=== PATIENT | female | born 1965 ===

== ENCOUNTER 2025-07-23 07:08 | Emergency (ER) | payer MEDICARE ==
[2025-07-23] MEDS: fentaNYL 50 MCG/ML SDV IVPUSH ONE ×2 (07:29→08:10)
[2025-07-23 07:35] LABS: BASOPHILS ABSOLUTE AUTO 0.01 K/uL (0.00-0.20); BASOPHILS PERCENT AUTO 0.2 % (0.0-2.0); EOSINOPHILS ABSOLUTE AUTO 0.04 K/uL (0.00-0.50); EOSINOPHILS PERCENT AUTO 0.6 % (0.0-5.0); IMMATURE GRAN ABSOLUTE AUTO 0.02 10^3/uL (0.00-0.04); IMMATURE GRAN PERCENT AUTO 0.3 % (0.0-0.4); LYMPHOCYTES ABSOLUTE AUTO 1.52 K/uL (0.50-3.50); LYMPHOCYTES PERCENT AUTO 23.3 % (10.0-50.0); MONOCYTES ABSOLUTE AUTO 0.39 K/uL (0.00-1.00); MONOCYTES PERCENT AUTO 6.0 % (2.0-14.0); NEUTROPHILS ABSOLUTE AUTO 4.54 K/uL (1.40-7.00); NEUTROPHILS PERCENT AUTO 69.6 % (45.0-80.0); PLATELET COUNT,PLT 177 K/uL (150-350); RED BLOOD CELL COUNT 3.41 M/uL (3.77-5.09); RED CELL DISTRIBUTION WIDTH 12.2 % (11.2-14.1); WHITE BLOOD CELL COUNT,WBC 6.5 K/uL (4.0-10.2)
[2025-07-23 07:56] LABS: ALANINE AMINOTRANSFERASE,ALT 31 U/L (12-78); ASPARTATE AMNIOTRANSFERASE,AST 29 U/L (15-37); BILIRUBIN TOTAL 0.6 mg/dL (0.2-1.0); BLOOD UREA NITROGEN,BUN 22 mg/dL (7-18); CARBON DIOXIDE,CO2 25.3 mmol/L (21.0-32.0); CHLORIDE,CL 105 mmol/L (98-107); CREATININE 1.53 mg/dL (0.51-1.17); GLUCOSE RANDOM 98 mg/dL (70-99); POTASSIUM,K 4.4 mmol/L (3.5-5.1); PROTEIN TOTAL,TP 6.8 g/dL (6.4-8.2); SODIUM,NA 143 mmol/L (136-145)
[2025-07-23 07:58] LABS: ESTIMATED GFR 39 mL/min (>=60)
[2025-07-23] MEDS ORDERED: Midazolam 1 MG/ML 2 ML SDV IV ONE (08:00)
[2025-07-23] MEDS ORDERED: Naloxone 0.4 MG/ML SDV IVPUSH PRN (08:07)
[2025-07-23] MEDS: Midazolam 1 MG/ML 2 ML SDV IVPUSH ONE (08:10)
[2025-07-23] MEDS: Midazolam Oral Soln 10 MG/5 ML UD Cup PO ONE (08:31)
[2025-07-23] MEDS: Sodium Chloride 0.9% 10 ML Syringe FLUSH PRN (09:07)
[2025-07-23] MEDS: Ondansetron 4 MG/2 ML SDV IVPUSH ONE (09:14)
== END 2025-07-23 09:25 ==
LOC: LL.ED 07:08
DX: T84.021A Dislocation of internal left hip prosthesis, initial encounter (principal); R55 Syncope and collapse; X58.XXXA Exposure to other specified factors, initial encounter; Y93.E1 Activity, personal bathing and showering
CPT/HCPCS: 27265; 36415; 70450; 72170; 80053; 84484; 85025; 96374; 96375; 96376; 99284; 99285; J2250; J2405; J3010; J1171